=== PATIENT | female | born 1960 | race Caucasian/White ===

== ENCOUNTER → 2017-11-04 | Outpatient (CLI) | payer OTHER ==
[~2017-11-04] MED LIST: CHOL10002; HYDCHL25
== END | disposition home or self-care (01) ==
LOC: LAB SHORT 08:02 → PLD 08:02
DX: N90.89 Other specified noninflammatory disorders of vulva and perineum (principal); L91.8 Other hypertrophic disorders of the skin
CPT/HCPCS: 88304

== ENCOUNTER → 2017-12-08 | Outpatient (CLI) | payer OTHER | END | disposition home or self-care (01) | LOC: LAB SHORT 14:35 → OLS 14:35 | PROVIDERS: Nurse Practitioner Women's Health | DX: Z12.4 Encounter for screening for malignant neoplasm of cervix (principal); Z91.89 Other specified personal risk factors, not elsewhere classified | CPT/HCPCS: 87624; G0123 ==

== ENCOUNTER → 2018-12-14 | Outpatient (CLI) | payer OTHER ==
[2018-12-16 15:06] LABS: HPV 16 Negative (Negative); HPV 18 Negative (Negative); HPV OTHER HR TYPES Negative (Negative)
== END | disposition home or self-care (01) ==
LOC: LAB SHORT 12:27 → LAB 12:27
PROVIDERS: Nurse Practitioner Women's Health
DX: Z12.4 Encounter for screening for malignant neoplasm of cervix (principal); Z91.89 Other specified personal risk factors, not elsewhere classified
CPT/HCPCS: 87624; G0123

== ENCOUNTER → 2019-02-25 | Outpatient (CLI) | payer OTHER | END | disposition home or self-care (01) | LOC: LAB SHORT 07:40 → LAB 07:40 | DX: N95.0 Postmenopausal bleeding (principal) | CPT/HCPCS: 88305 ==

== ENCOUNTER → 2021-04-11 | Outpatient (CLI) | payer OTHER ==
[~2021-04-11] MED LIST changes: -HYDCHL25; +HYDCHL25 PO; +LOSA25 PO
[2021-04-13 13:13] LABS: METANEPH/CREAT RATIO 0.3 (0.0-1.0)
== END ==
LOC: LAB SHORT 05:30 → LAB 05:30 → LAB FUT 04-06 08:15
PROVIDERS: Family Medicine
DX: R23.2 Flushing (principal); Z91.018 Allergy to other foods
CPT/HCPCS: 82570; 83835

== ENCOUNTER 2021-04-14 10:02 | Emergency (ER) | payer OTHER ==
[~2021-04-14] VITALS: Ht 165.1 cm; Wt 68.0 kg
[~2021-04-14 10:02] MED LIST changes: -LOSA25 PO
[2021-04-14] MEDS ORDERED: LOSA25 PO (10:13)
== END 2021-04-14 12:09 | disposition home or self-care (01) ==
LOC: ER 10:02
DX: S62.617A Displaced fracture of proximal phalanx of left little finger, initial encounter for closed fracture (principal); S61.216A Laceration without foreign body of right little finger without damage to nail, initial encounter; S50.01XA Contusion of right elbow, initial encounter; I10 Essential (primary) hypertension; Z88.6 Allergy status to analgesic agent; Z91.013 Allergy to seafood; Z79.899 Other long term (current) drug therapy; W18.30XA Fall on same level, unspecified, initial encounter
CPT/HCPCS: 73080; 73140

== ENCOUNTER 2023-02-25 09:20 | Day surgery (SDC) | payer OTHER ==
[~2023-02-25] VITALS: Ht 162.6 cm; Wt 78.6 kg
[~2023-02-25 09:20] MED LIST changes: +LOSA25 PO
--- NOTE | 2023-02-25 10:34 | NUR ---
02/25/23 1034 Jass Basilio CALL LIGHT WITHIN REACH
[2023-02-25 11:42] VITALS: BP 108/80
--- NOTE | 2023-02-25 11:43 | NUR ---
02/25/23 1143 Lashanda Flores IV DC'D CATH INTACT. PT TOLERATED WELL
== END 2023-02-25 11:43 | disposition home or self-care (01) ==
LOC: ORSCSDS 09:20
PROVIDERS: Surgery
PROC: 0DJD8ZZ Inspection of Lower Intestinal Tract, Via Natural or Artificial Opening Endoscopic (ICD-10-PCS; principal; 2023-02-25 11:00)
DX: Z12.11 Encounter for screening for malignant neoplasm of colon (principal); K57.30 Diverticulosis of large intestine without perforation or abscess without bleeding; K21.9 Gastro-esophageal reflux disease without esophagitis; I44.7 Left bundle-branch block, unspecified; F32.A Depression, unspecified; F41.9 Anxiety disorder, unspecified; I12.9 Hypertensive chronic kidney disease with stage 1 through stage 4 chronic kidney disease, or unspecified chronic kidney disease; N18.2 Chronic kidney disease, stage 2 (mild); Z79.899 Other long term (current) drug therapy
CPT/HCPCS: J0461; J2001; J2405; J2704; J7120